=== PATIENT | male | born 1990 | race Caucasian/White ===

== ENCOUNTER 2016-04-11 16:55 | Emergency (ER) | payer OTHER ==
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
--- NOTE | 2016-04-11 18:02 | ED ORDER SUMMARY ---
..... Patient: KIRK CHRISTINA OrderSheet [facility] VisitID: [id number] [place] [address] 26y, M Registration Date/Time: 04/11/2016 ORDER SHEET Weight: 77.1 kg (stated) Allergies: NKDA GENERAL ORDERS: Cervical Spine 2 or 3V Urgent (17:16 04/11/2016 HBivens A.R.N.P.) (Ack 17:26 LMuller) (17:38 JBoardley R.N.) CT Head wo Cont Urgent (17:18 04/11/2016 HBivens A.R.N.P.) (Ack 17:26 LMuller) (17:38 JBoardley R.N.) Breathalyzer (17:31 04/11/2016 JBoardley R.N. verbal order read back to HBivens A.R.N.P.) (17:31 JBoardley R.N.) MEDICATION ORDERS: IV FLUIDS: ORDER SHEET NOTES: [Electronically signed by Scar Tatum R.N. (18:25 04/11/2016)] [Electronically signed by Kristina Rivas.R.N.P. (19:45 04/11/2016)] [Electronically locked/signed by Scar Tatum R.N. (18:25 04/11/2016)]
--- NOTE | 2016-04-11 18:02 | ED ORDER SUMMARY ---
..... Patient: KIRK CHRISTINA OrderSheet [facility] VisitID: [id number] [place] [address] 26y, M Registration Date/Time: 04/11/2016 ORDER SHEET Weight: 77.1 kg (stated) Allergies: NKDA GENERAL ORDERS: Cervical Spine 2 or 3V Urgent (17:16 04/11/2016 HBivens A.R.N.P.) (Ack 17:26 LMuller) (17:38 JBoardley R.N.) CT Head wo Cont Urgent (17:18 04/11/2016 HBivens A.R.N.P.) (Ack 17:26 LMuller) (17:38 JBoardley R.N.) Breathalyzer (17:31 04/11/2016 JBoardley R.N. verbal order read back to HBivens A.R.N.P.) (17:31 JBoardley R.N.) MEDICATION ORDERS: IV FLUIDS: ORDER SHEET NOTES: [Electronically signed by Scar Tatum R.N. (18:25 04/11/2016)] [Electronically signed by Kristina Rivas.R.N.P. (19:45 04/11/2016)] [Electronically locked/signed by Scar Tatum R.N. (18:25 04/11/2016)]
--- NOTE | 2016-04-11 19:46 | ED MED RECONCILIATION SUMMARY ---
Patient: RAJEEVDALIA KIRK Jose Medication Reconciliation Report [facility] VisitID: [id number] [address] [place] [place] [address] 26y, M Registration Date/Time: 04/11/2016 Weight: 77.1 kg Height/Length: 74 in. BMI: 21.8 ALLERGIES: NKDA The patient's Home Medications are listed below: NONE. The source(s) of the original Home Medication information: patient The following Medications were given to the patient in the Emergency Department: None. The following Medications were prescribed to the patient: None.
--- NOTE | 2016-04-11 19:46 | ED MAR SUMMARY ---
..... Medication Administration Record [facility] [address] [place], [place] [id number] Patient: KIRK CHRISTINA Visit ID: [id number] 26y, M Weight: 77.1 kg Height/Length: 74 in BMI: 21.8 ALLERGIES: NKDA
--- NOTE | 2016-04-11 19:46 | ED MAR SUMMARY ---
..... Medication Administration Record [facility] [address] [place] [id number] Patient: KIRK CHRISTINA Visit ID: [id number] 26y, M Weight: 77.1 kg Height/Length: 74 in BMI: 21.8 ALLERGIES: NKDA
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
--- NOTE | 2016-04-11 19:46 | ED MED RECONCILIATION SUMMARY ---
Patient: RAJEEVDALIA KIRK Jose Medication Reconciliation Report [facility] VisitID: [id number] [address] [place] [address] 26y, M Registration Date/Time: 04/11/2016 Weight: 77.1 kg Height/Length: 74 in. BMI: 21.8 ALLERGIES: NKDA The patient's Home Medications are listed below: NONE. The source(s) of the original Home Medication information: patient The following Medications were given to the patient in the Emergency Department: None. The following Medications were prescribed to the patient: None.
== END 2016-04-11 18:15 ==
LOC: ED SRH 16:55
DX: S00.01XA Abrasion of scalp, initial encounter (principal); M79.1 Myalgia; F10.120 Alcohol abuse with intoxication, uncomplicated; V53.5XXA Driver of pick-up truck or van injured in collision with car, pick-up truck or van in traffic accident, initial encounter; Y93.I9 Activity, other involving external motion; Y92.410 Unspecified street and highway as the place of occurrence of the external cause; Y99.9 Unspecified external cause status